=== PATIENT | female | born 1970 | race Caucasian/White ===

== ENCOUNTER → 2023-07-01 | Outpatient (CLI) | payer BC, SELFPAY ==
--- NOTE | 2023-07-01 09:37 | NM_ITS ---
CLINICAL: 52-year-old female with history of low back discomfort. WHOLE BODY 99m Tc MDP RADIONUCLIDE BONE SCINTIGRAPHY COMPARISON: Plain film radiograph report lumbar spine 06/22/2023 FINDINGS: Following the intravenous administration of 26.3 mCi of 99m Tc MDP, whole body bone images reveal: 1. Increased radiotracer distribution is defined in the patellofemoral compartment of the left knee, the sternoclavicular compartment of the left shoulder, acromioclavicular compartments of both shoulders, the glenohumeral compartment of the right shoulder, the fifth lumbar vertebra anteriorly and posteriorly on the right, ninth thoracic vertebra posteriorly on the left, bilateral sacroiliac joints. 2. The remaining skeletal structures are scintigraphically unremarkable with normal-appearing renal images and urinary bladder activity identified. Juxta-arthrodial uptake is noted in the bilateral knees medially. NM/Bone Scan Whole Body IMPRESSION: 1. The increase in tracer distribution defined in the left knee, bilateral shoulders, thoracic and lumbar spine and bilateral sacroiliac joints is most consistent with degenerative arthritis. 2. Facilitated uptake noted in the medial tibial compartments of both knees may be further investigated with plain film radiography. Electronically Signed: Ricky Nelson DO at 21:45 EDT ,
== END | disposition home or self-care (01) ==
LOC: NM 09:33
PROVIDERS: PCP Family Medicine; Referring Provider Orthopaedic Surgery; Visit Provider Orthopaedic Surgery
DX: M47.816 Spondylosis without myelopathy or radiculopathy, lumbar region (principal)
CPT/HCPCS: 78306; A9503